=== PATIENT | female | born 1955 | race Caucasian/White ===

== ENCOUNTER 2016-10-04 05:58 | Observation (INO) | payer OTHER, BC ==
[2016-09-30 11:37] LABS: BASOPHILS 0.4 %; BASOPHILS ABSOLUTE 0.04 10/3/uL (0.0-0.16); EOSINOPHILS 4.1 %; EOSINOPHILS ABSOLUTE 0.38 10/3/uL (0.0-0.53); HEMATOCRIT 38.8 % (36.0-48.0); HEMOGLOBIN 12.8 g/dL (12.0-16.0); IMMATURE GRANULOCYTES 0.2 %; IMMATURE GRANULOCYTES ABSOLUTE 0.02 10/3/uL (0.0-0.11); LYMPHOCYTES 28.6 %; LYMPHOCYTES ABSOLUTE 2.68 10/3/uL (0.67-4.30); MEAN CORPUSCULAR HEMOGLOB 28.4 pg (26.0-34.0); MEAN CORPUSCULAR VOLUME 86.2 fL (80-100); MEAN PLATELET VOLUME 10.4 fL (9.2-13.0); MONOCYTES 8.8 %; MONOCYTES ABSOLUTE 0.82 10/3/uL (0.21-1.20); NEUTROPHILS 57.9 %; NEUTROPHILS ABSOLUTE 5.42 10/3/uL (2.02-8.40); PLATELET COUNT 235 10/3/uL (150-400); RBC DISTRIBUTION WIDTH 14.2 % (12.0-16.0); WHITE BLOOD CELLS 9.4 10/3/uL (4.5-10.5)
[2016-09-30 11:41] LABS: MANUAL DIFF NO %
[2016-09-30 12:05] LABS: BUN (BLOOD UREA NITROGEN) 14 MG/DL (6-23); CA 125 II 21.8 U/ML (< 35.0); CALCIUM, SERUM 9.1 MG/DL (8.5-10.4); CHLORIDE, SERUM 105 MMOL/L (96-112); CO2 (CARBON DIOXIDE) 29 MMOL/L (24-34); CREATININE 0.81 MG/DL (0.55-1.02); GFR AFRICAN AMERICAN 91 ML/MIN (>=60); GFR NON AFRICAN AMERICAN 78 ML/MIN (>=60); GLUCOSE, SERUM 96 MG/DL (60-99); POTASSIUM, SERUM 4.1 MMOL/L (3.5-5.3); SODIUM, SERUM 142 MMOL/L (135-148)
--- NOTE | ~2016-10-04 | OP ---
Record Of Operation [facility] [address] [place]. [address] NAME: ALONSO MCCALL : 53 STATUS : DIS Cody PAT#: [id number] AGE: 60 ADM/REG DATE : 10/04/16 MR#: [id number] REPORT SERV DATE: 10/07/16 DICTATED BY: PERRY HENRY DATE: 10/07/16 REPORT STATUS : Draft TRANSCRIBED BY: MODL DATE: 10/07/16 DATE OF PROCEDURE: 10/04/2016 PREOPERATIVE DIAGNOSIS: Grade 3 endometrial carcinoma. POSTOPERATIVE DIAGNOSIS: Grade 3 endometrial carcinoma with multiple abdominal adhesions specifically to the omentum. PROCEDURES: 1. Laparoscopic hysterectomy with bilateral salpingo-oophorectomy via the da Aki laparoscopic robotic instrument, CPT code 59681. 2. Pelvic lymph node sampling with sentinel lymph node identification, CPT code 08495. 3. Lysis of adhesions performed via the da Aki laparoscopic robotic instrument, CPT code 08928. 4. [place] lymph node injection with Indocyanine green for sentinel lymph node identification, CPT Code 16217. SURGEON: Perry Henry M.D. FLEET ADMINISTRATOR: Michael Mejia MD ESTIMATED BLOOD LOSS: For the entire procedure was 20 mL. FLUIDS IN: 1500 mL of crystalloid. COMPLICATIONS: None. ANESTHESIA: General endotracheal. INDICATIONS AND FINDINGS: This is a 60-year-old female, who presents with a biopsy consistent with a grade 3 endometrial carcinoma. She was taken to the operating room for removal of the uterus and endometrial cancer staging. Intraoperatively, she was found to have multiple adhesions specifically of the omentum to the anterior abdominal wall which required greater than 50% of the entire operative time to remove. Once, the adhesions were taken down, visualization was difficult, secondary to her body habitus. She did map on both the right and left side of the pelvis with Indocyanine green using [employer], multiple sentinel lymph nodes were identified and an omental biopsy was performed. Again, there was no gross evidence of disease outside of the uterus. Prior to the induction of anesthesia, the patient was treated with Lovenox for DVT prophylaxis. Postprocedure, a cystoscopy was performed with excellent bilateral ureteral jets. No evidence of bladder defect. PROCEDURE IN DETAIL: The patient was taken to the operating room. She was placed in supine position for administration of general anesthesia. She was then placed in dorsal lithotomy position and prepped and draped in the usual sterile fashion. The cervix was easily visualized and was injected with Indocyanine green for sentinel lymph node identification. Record Of Operation [facility] [address] [place]. [address] NAME: ALONSO MCCALL : 53 STATUS : DIS Cody PAT#: [id number] AGE: 60 ADM/REG DATE : 10/04/16 MR#: [id number] REPORT SERV DATE: 10/07/16 DICTATED BY: PERRY HENRY DATE: 10/07/16 REPORT STATUS : Draft TRANSCRIBED BY: MODL DATE: 10/07/16 A Rosalind uterine manipulator was then placed through the uterine and cervix, and a DANTE ring was sutured to the patient's cervix. Our attention was then turned towards the anterior abdominal wall, where an incision was made approximately 27 cm above the pubic symphysis and taken down to the underlying layer of fascia. The fascia was grasped with two sutures of 0 Vicryl tented up and entered sharply. The perineum was then tented up and entered sharp, and a laparoscopic trocar was placed under direct visualization. The abdominal cavity was insufflated with CO2. Two additional 8 mm trocars were placed, one additional 15 mm trocar was placed. The patient was then docked to the laparoscopic robotic instrument, the remainder the procedure was performed via da Aki, the above findings were noted. Pelvic washings were taken. There were again multiple adhesions to the anterior abdominal wall. This required extensive dissection of the omentum with great care to not injure the colon. The omentum was subsequently taken off the anterior abdominal wall which extended from the falciform ligament to the pelvis. Once, the adhesions were adequately displaced, the uterus was easily visualized. The retroperitoneal spaces were opened via the round ligaments which were grasped with bipolar cautery, cauterized and transected bilaterally. The uterine arteries were identified at their origin and Hemoclips were placed to ensure long-term hemostasis. The gonadal vessels were then isolated and Hemoclips were placed to ensure chcf hemostasis. They were then coagulated and transected bilaterally. Using [employer], multiple lymph nodes were identified, the sentinel lymph nodes, they were removed with sharp dissection and cautery for hemostasis. Placed into EndoCatch bags and delivered through the trocar site and labeled appropriately. Once the sentinel lymph node sampling was complete, the hysterectomy was performed. Anteriorly a bladder flap was taken down to a level well below the cervix. The uterine arteries were then skeletonized at the level of the cervix, grasped with bipolar cautery, cauterized and transected bilaterally. The uterosacral cardinal ligaments were then taken down with unipolar cautery and circumferential incision was made around the cervix and vagina, and the uterus, tubes, ovaries, and cervix were delivered through the vagina with the above findings noted. The vaginal cuff was then closed using a running stitch of #1 PDS V-Loc. The pelvis was irrigated with copious amounts of warm water. All pedicles were inspected and found to be hemostatic. The laparoscopic instruments were removed. The gas was expelled from the abdomen. Both the initial trocar site and the accessory trocar site were closed with 0 Vicryl at fascia using Abdulaziz-Sandy closure device. The skin sites were closed the 4-0 Monocryl and Dermabond was placed. Postprocedure, a cystoscopy was performed, again with excellent bilateral ureteral jets without evidence of bladder defect. At the completion of the procedure the anesthesia was reversed. The patient was extubated and brought to the recovery room in stable condition. LINDA/JHONATAN Perry Henry M.D. / [id number] CC: Record Of Operation [address] [address] NAME: ALONSO MCCALL : 53 STATUS : DIS Cody PAT#: [id number] AGE: 60 ADM/REG DATE : 10/04/16 MR#: [id number] REPORT SERV DATE: 10/07/16 DICTATED BY: PERRY HENRY DATE: 10/07/16 REPORT STATUS : Draft TRANSCRIBED BY: MODL DATE: 10/07/16 Dat Mccrary WILLIAM C
[~2016-10-04 05:58] MED LIST: ANADS PO; ATEN50 PO; B121000P SC; CELEXA40 MG PO; FLEX PO; GLUCPH PO; LIPITOR10 PO; MICROZIDE PO; NASONEX NAS; NEUR300 PO; NORCO1 TA2 PO; PROTONIX PO; SEROQUEL50 MG PO
[2016-10-05 06:33] LABS: A/G RATIO 0.9 (0.7-1.9); ALKALINE PHOSPHATASE 95 U/L (45-117); BUN (BLOOD UREA NITROGEN) 12 MG/DL (6-23); CALCIUM, SERUM 8.4 MG/DL (8.5-10.4); CHLORIDE, SERUM 108 MMOL/L (96-112); CO2 (CARBON DIOXIDE) 27 MMOL/L (24-34); CREATININE 0.95 MG/DL (0.55-1.02); GFR AFRICAN AMERICAN 75 ML/MIN (>=60); GFR NON AFRICAN AMERICAN 65 ML/MIN (>=60); GLOBULIN 3.5 G/DL (2.5-4.1); POTASSIUM, SERUM 4.2 MMOL/L (3.5-5.3); SGOT(AST) 48 U/L (5-40); SGPT(ALT) 54 U/L (5-65); SODIUM, SERUM 143 MMOL/L (135-148); TOTAL BILIRUBIN 0.5 MG/DL (0-1.2); TOTAL PROTEIN 6.5 G/DL (6.0-8.5)
[2016-10-05 06:34] LABS: GLUCOSE, SERUM 147 MG/DL (60-99)
[2016-10-05 07:49] LABS: BASOPHILS 0.1 %; BASOPHILS ABSOLUTE 0.01 10/3/uL (0.0-0.16); EOSINOPHILS 0 %; HEMOGLOBIN 11.3 g/dL (12.0-16.0); IMMATURE GRANULOCYTES 0.3 %; IMMATURE GRANULOCYTES ABSOLUTE 0.04 10/3/uL (0.0-0.11); LYMPHOCYTES 12.3 %; LYMPHOCYTES ABSOLUTE 1.43 10/3/uL (0.67-4.30); MEAN CORPUS HGB CONC 32.5 g/dL (32.0-36.0); MEAN CORPUSCULAR HEMOGLOB 27.9 pg (26.0-34.0); MEAN CORPUSCULAR VOLUME 85.9 fL (80-100); MEAN PLATELET VOLUME 10.4 fL (9.2-13.0); MONOCYTES 7.6 %; MONOCYTES ABSOLUTE 0.89 10/3/uL (0.21-1.20); NEUTROPHILS 79.7 %; NEUTROPHILS ABSOLUTE 9.27 10/3/uL (2.02-8.40); PLATELET COUNT 215 10/3/uL (150-400); RBC DISTRIBUTION WIDTH 13.9 % (12.0-16.0); RED CELL COUNT 4.05 10/6/uL (4.0-5.6); WHITE BLOOD CELLS 11.6 10/3/uL (4.5-10.5)
[2016-10-05] MEDS ORDERED: ZOFRAN8 PO (07:54)
[2016-10-05] MEDS ORDERED: OXYCOD PO (07:55)
[2016-10-05 08:01] LABS: HEMATOCRIT 34.8 % (36.0-48.0); MANUAL DIFF NO %
== END 2016-10-05 10:05 | disposition home or self-care (01) ==
LOC: SDC 05:58 → 4EA 14:17
PROVIDERS: Obstetrics & Gynecology Gynecologic Oncology
PROC: 07BC3ZX Excision of Pelvis Lymphatic, Percutaneous Approach, Diagnostic (ICD-10-PCS; 2016-10-04)
PROC: 0UT94ZZ Resection of Uterus, Percutaneous Endoscopic Approach (ICD-10-PCS; principal; 2016-10-04 07:00)
PROC: 0UTC4ZZ Resection of Cervix, Percutaneous Endoscopic Approach (ICD-10-PCS; 2016-10-04 07:00)
PROC: 0UT24ZZ Resection of Bilateral Ovaries, Percutaneous Endoscopic Approach (ICD-10-PCS; 2016-10-04 07:00)
PROC: 0UT74ZZ Resection of Bilateral Fallopian Tubes, Percutaneous Endoscopic Approach (ICD-10-PCS; 2016-10-04 07:00)
DX: C54.1 Malignant neoplasm of endometrium (principal); I10 Essential (primary) hypertension; E78.5 Hyperlipidemia, unspecified; E11.9 Type 2 diabetes mellitus without complications; E78.00 Pure hypercholesterolemia, unspecified; F41.9 Anxiety disorder, unspecified; F32.9 Major depressive disorder, single episode, unspecified; M19.90 Unspecified osteoarthritis, unspecified site; L40.9 Psoriasis, unspecified; E66.01 Morbid (severe) obesity due to excess calories; Z68.43 Body mass index [BMI] 50.0-59.9, adult; Z98.1 Arthrodesis status; Z96.653 Presence of artificial knee joint, bilateral; Z86.010 Personal history of colon polyps; Z86.73 Personal history of transient ischemic attack (TIA), and cerebral infarction without residual deficits; Z79.84 Long term (current) use of oral hypoglycemic drugs; Z79.82 Long term (current) use of aspirin; Z79.899 Other long term (current) drug therapy; Z98.890 Other specified postprocedural states
CPT/HCPCS: 36415; 71020; 80048; 80053; 82962; 85025; 86304; 86850; 86900; 86901; 88112; 88305; 88307; 88309; 88341; 88342; 88360; 93005; A9270-GY; G0378; J0694; J2250; J2405; J2710; J2795; J3010